=== PATIENT | male | born 1965 | race Caucasian/White ===

== ENCOUNTER 2017-01-31 20:51 | Emergency (ER) | payer SELFPAY ==
[~2017-01-31] VITALS: Ht 193 cm; Wt 110.0 kg
[~2017-01-31 20:51] MED LIST: ASPI325T PO; ENOX40P SQ; METO25 PO; OXYC1SOL5 PO; SERO300T PO; SOMA350T PO; XANA1TAB6 PO; Z.0.COMMODE-3:1; Z.0.WALKERFRONT
[2017-01-31 20:54] VITALS: BP 141/87; PULSE 93; RESP 16; TEMP 98.2; O2SAT 97
[2017-01-31] MEDS ORDERED: BACT800T5 PO (21:22)
--- NOTE | 2017-01-31 21:25 | PD ---
HPI Chief Complaint: Skin Problem Time Seen by Provider: 21:18 Travel History International Travel<30 days: No Contact w/Intl Traveler<30days: No Traveled to known affect area: No History of Present Illness HPI 52-year-old white male presents to emergency department with complains of a sore on his left forearm which she has had her last 3 days. He had one on his left upper arm which open and draining. Symptoms are [id number]. No alleviating factors. No exacerbating factors. He denies any fever or chills. He is up-to-date with immunizations. History of site but no history of skin infections in the past. PFSH Past Medical History Arthritis: Yes Blood Disorders: No Bipolar Disorder: Yes (RECENTLY DIAGNOSED BY KAYLA LARKIN 4 YEARS AGO BUT DENIES ACCURACY OF DX) Anxiety: Yes Heart Rhythm Problems: No Cancer: No Cardiovascular Problems: No Congestive Heart Failure: No Cerebrovascular Accident: No Diabetes: No Diminished Hearing: No Endocrine: No Genitourinary: Yes (URINARY FREQUENCY ) Hepatitis: No Hiatal Hernia: No Immune Disorder: No Musculoskeletal: Yes (L1-L3 & S1-s2 HERNIATED DISCS, ANTERIOR TEAR @L3; ) Neurologic: No Psychiatric: Yes (BIPOLAR, ANXIETY ) Respiratory: No Migraines: No Renal Failure: No Seizures: No Thyroid Disease: No Past Surgical History Abdominal Surgery: No AICD: No Body Medical Devices: ? ANCHOR LEFT SHOULDER Cardiac Surgery: No Ear Surgery: No Endocrine Surgery: No Eye Surgery: No Genitourinary Surgery: No Gynecologic Surgery: No Joint Replacement: No Oral Surgery: Yes (TONSILLECTOMY ) Pacemaker: No Thoracic Surgery: No Social History Alcohol Use: No Tobacco Use: Yes (COPENHAGEN 4 DIPD DAILY) Substance Use: No Allergies-Medications (Allergen,Severity, Reaction): Coded Allergies: No Known Allergies (Verified Adverse Reaction, Unknown, 01/31/17) Reported Meds & Prescriptions Reported Meds & Active Scripts Active Bactrim DS (Sulfamethoxazole-Trimethoprim) 800-160 Mg Tab 1 Tab PO BID Metoprolol Tartrate 25 mg (Metoprolol Tartrate) 25 Mg Tab 12.5 Mg PO Q12 30 Days Walker Front Wheel (Z.0.walkerfront) Device 1 Unit Commode-3:1 (Z.0.commode-3:1) Device 1 Unit Aspirin 325 Mg Tab (Aspirin) 325 Mg Tab 325 Mg PO DAILY Start Aspirin after Lovenox is completed. Oxycodone/Acetaminophen 5-325 mg/5Ml (Oxycodone W/ Acetaminophen) 1 Tab Tab 1-2 Tab PO Q4H PRN Lovenox (Enoxaparin Sodium) 40 Mg/0.4 Ml Inj 40 Mg SQ Q24H Start Aspirin after Lovenox is completed. Reported Soma (Carisoprodol) 350 Mg Tab 700 Mg PO HS Seroquel 300 mg (Quetiapine Fumarate) 300 Mg Tab 300 Mg PO DAILY Xanax 1 mg (Alprazolam) 1 Mg Tab 1 Mg PO BID Review of Systems General / Constitutional: No: Fever Eyes: No: Visual changes HENT: No: Headaches Cardiovascular: No: Chest Pain or Discomfort Respiratory: No: Shortness of Breath Gastrointestinal: No: Abdominal Pain Genitourinary: No: Dysuria Musculoskeletal: No: Pain Skin: Positive Rash, Positive Lesions Neurologic: No: Weakness Psychiatric: No: Depression Endocrine: No: Polydipsia Hematologic/Lymphatic: No: Easy Bruising Physical Exam Narrative GENERAL: This is a well-nourished, well-developed patient, in no apparent distress. SKIN: Patient has a 1.5 x 1.5 cm erythematous indurated superficial abscess to the left anterior forearm. Scant drainage. No fluctuance or pointing. Warm and dry. HEAD: Atraumatic. Normocephalic. EYES: PERRL, EOMI, no discharge or injection. No scleral icterus. EARS: Clear NOSE: Nasal turbinates appear normal. THROAT: Mucosa pink and moist. Airway patent. NECK: Trachea midline. supple, moves head freely. LUNGS: Clear to auscultation. CV: Regular in rhythm. ABDOMEN: Soft nontender. EXT: No clubbing cyanosis or edema. Data Data Last Documented VS Vital Signs Date Time Temp Pulse Resp B/P (MAP) Pulse Ox O2 Delivery O2 Flow Rate FiO2 01/31/17 20:54 98.2 93 16 141/87 (105) 97 Room Air Orders Orders Ed Discharge Order (01/31/17 21:22) Sulfamet-Trimeth Ds 800-160 Mg (Bactrim (01/31/17 21:30) MDM Medical Decision Making Medical Screen Exam Complete: Yes Emergency Medical Condition: Yes Medical Record Reviewed: Yes Differential Diagnosis MDM: High Differential diagnoses: Abscess, folliculitis, cellulitis, lymphangitis, abrasion, contact dermatitis Narrative Course Patient's given Bactrim DS. Diagnosis Primary Impression: Abscess of left forearm Patient Instructions: General Instructions Additional Instructions: Rest. Elevation. keep clean and dry. Warm compresses. Daily wound care with soap, water and Neosporin. Three Advil every 6 hours. Bactrim DS. Follow-up with a primary care doctor in one week. Return to the ER for any problems. Med/Other Pt SpecificInfo: Prescription(s) given, Wound Care Scripts Sulfamethoxazole-Trimethoprim (Bactrim DS) 800-160 Mg Tab 1 TAB PO BID for Infection, #20 TAB 0 Refills Prov: Philip Ruibo MD 01/31/17 Disposition: 01 DISCHARGE HOME Condition: Stable Tristen Lucas Jan 31, 2017 21:25
[2017-01-31] MEDS ORDERED: SULFAMETHOXAZOLE-TRIMETHOPRIM DS 800-160 MG TAB PO ONE (21:30)
== END 2017-01-31 22:11 | disposition home or self-care (01) ==
LOC: NEPK 20:51
DX: L02.414 Cutaneous abscess of left upper limb (principal); F31.9 Bipolar disorder, unspecified; F41.9 Anxiety disorder, unspecified
CPT/HCPCS: 99283